=== PATIENT | male | born 1950 | race Caucasian/White ===

== ENCOUNTER 2016-07-12 23:25 | Emergency (ER) | payer OTHER, MEDICAID ==
--- NOTE | 2016-07-17 08:22 | ER ---
ADMIT: 07/12/2016 RM/LOC: ER [facility] MR#: [id number] [address] [place] [address] Emergency Room Report SEX: M AGE: 66 : 1950 DATE: 07/12/2016 HISTORY OF PRESENT ILLNESS: A 66-year-old from [place] sat up in the bed, slung his legs over the side and had a sudden sharp low back pain. See T- sheet for remainder history and physical. The patient is diagnosed with acute back pain. Toradol and Flexeril relieved his discomfort. He was returned to the care home. DIAGNOSIS: Acute back pain. PLAN: Instructed to follow up this week with his primary. Konstantin Naik MD/ ike JOB #: [id number] CC: Luca Chen MD, Attending Physician
== END 2016-07-13 00:55 | disposition home or self-care (01) ==
LOC: ER 23:25
DX: M54.5 Low back pain (principal); F31.9 Bipolar disorder, unspecified; Z86.73 Personal history of transient ischemic attack (TIA), and cerebral infarction without residual deficits; Z79.899 Other long term (current) drug therapy